=== PATIENT | female | born 1945 | race African-American/Black ===

== ENCOUNTER 2024-04-02 12:13 | Inpatient (IN) | payer OTHER ==
[~2024-04-02] VITALS: Ht 165.1 cm; Wt 69.9 kg
[2024-04-02 12:16] VITALS: O2SAT 94
[2024-04-02 13:27] LABS: HEMATOCRIT. 41.7 % (36.0-48.0); HEMOGLOBIN. 13.2 g/dL (12.0-16.0); MEAN CORPUSCULAR HEMOGLOBIN 31.7 pg (28.0-32.0); MEAN CORPUSCULAR HGB CONC 31.6 g/dL (31.0-37.0); MEAN CORPUSCULAR VOLUME 100.3 fL (81.0-99.0); MEAN PLATELET VOLUME 7.7 fl (7.4-10.4); PLATELET 275 x1000/uL (130-400); RED BLOOD CELL COUNT 4.16 mill/uL (4.2-5.4); RED CELL DISTRIBUTION WIDTH 14.6 % (11.6-14.6); WHITE BLOOD COUNT 13.2 x1000/uL (4.5-11.0)
[2024-04-02 13:30] LABS: DIFFERENTIAL COMMENT 1
[2024-04-02 13:39] LABS: CHLORIDE 104 mEq/L (98-107); POTASSIUM 3.6 mEq/L (3.5-5.1); SODIUM 141 mEq/L (136-145)
[2024-04-02 13:40] LABS: CALCIUM 9.6 mg/dL (8.7-10.4); CARBON DIOXIDE 19 mEq/L (21-32)
[2024-04-02 13:45] LABS: CREATININE 1.2 mg/dL (0.6-1.0); GLUCOSE 233 mg/dL (70-105); UREA NITROGEN BLOOD 18 mg/dL (9-23)
[2024-04-02 13:47] LABS: ALANINE AMINOTRANSFERASE 33 IU/L (10-49); ALBUMIN 4.2 g/dL (3.2-4.8); ASPARTATE AMINOTRANSFERASE 57 IU/L (<34); BILIRUBIN DIRECT 0.4 mg/dL (<=3.0); BILIRUBIN TOTAL 1.2 mg/dL (0.1-1.0); PROTEIN TOTAL 7.2 g/dL (6.0-8.3)
[2024-04-02 14:05] LABS: LACTIC ACID 8.7 mmol/L (0.4-2.0)
[2024-04-02 14:06] LABS: ETHANOL BLOOD < 10 mg/dL (<10); TROPONIN I HIGH SENSITIVITY 858 ng/L (3.0-34)
[2024-04-02 14:38] LABS: PLATELET ESTIMATE NORMAL
[2024-04-02] MEDS: SODIUM CHLORIDE 0.9% 1,000 ML IV ONE (15:00)
[2024-04-02] MEDS ORDERED: GUAIFENESIN 200MG/10ML SUGAR FREE UDC PO PRN (16:45)
[2024-04-02] MEDS ORDERED: IPRATROPIUM/ALBUTEROL 0.5-3(2.5)MG/3ML NEB HHN PRN (16:45)
[2024-04-02] MEDS ORDERED: ONDANSETRON HCL 4MG/2ML INJ IV PRN (16:45)
[2024-04-02] MEDS ORDERED: ACETAMINOPHEN 325MG TABLET PO PRN ×2 (16:45)
[2024-04-02] MEDS ORDERED: DOCUSATE SODIUM 100MG CAPSULE PO PRN (16:45)
[2024-04-02] MEDS ORDERED: MAGNESIUM/ALUMINUM HYDROXIDE/SIMETHICONE 30ML UDC PO PRN (16:45)
[2024-04-02] MEDS ORDERED: PIPERACILLIN/TAZOBACTAM 3.375 G in DEXTROSE 5% WATER 50 ML IV SCH (16:45)
[2024-04-02] MEDS: VANCOMYCIN 1.5GM/250ML 250 ML IV NR (17:00)
[2024-04-02 17:34] LABS: CLARITY URINE CLOUDY (CLEAR); COLOR URINE YELLOW (YELLOW); GLUCOSE URINE NEGATIVE (NEGATIVE); KETONES URINE TRACE (NEGATIVE); LEUKOCYTE ESTERASE URINE TRACE (NEGATIVE); NITRITE URINE NEGATIVE (NEGATIVE); OCCULT BLOOD URINE TRACE (NEGATIVE); PH URINE 5.5 (4.5-8.0); PROTEIN URINE 2+ (NEGATIVE); SPECIFIC GRAVITY URINE 1.016 (1.005-1.030)
[2024-04-02] MEDS: SODIUM CHLORIDE 0.9% 1,000 ML IV SCH (17:36)
[2024-04-02 17:53] LABS: *AMPHETAMINES SCREEN URINE NEGATIVE (NEGATIVE); *BARBITURATES SCREEN URINE NEGATIVE (NEGATIVE); *BENZODIAZEPINES SCREEN URINE NEGATIVE (NEGATIVE); *COCAINE SCREEN URINE NEGATIVE (NEGATIVE); METHADONE URINE SCREEN NEGATIVE (NEGATIVE); OPIATES URINE SCREEN NEGATIVE (NEGATIVE)
[2024-04-02 17:54] LABS: CANNABINOID URINE SCREEN NEGATIVE (NEGATIVE); ECSTASY MDMA SCREEN URINE NEGATIVE (NEGATIVE); PHENCYCLIDINE URINE SCREEN NEGATIVE (NEGATIVE)
[2024-04-02] MEDS ORDERED: PIPERACILLIN/TAZO 3.375G/100ML 100 ML IV SCH ×2 (18:00→22:00)
[2024-04-02] MEDS: PIPERACILLIN/TAZO 3.375G/100ML 100 ML IV SCH (18:16)
[2024-04-02 18:31] LABS: BACTERIA URINE 3+; SQUAMOUS EPITHELIAL CELL URINE 1+ /lpf (RARE/1+)
[2024-04-02 20:00] VITALS: BP 141/68; PULSE 86; RESP 18; TEMP 36.3918; O2SAT 94
[2024-04-02 21:00] VITALS: BP 141/68; PULSE 86; RESP 18; TEMP 36.418
[2024-04-02 21:59] LABS: AMMONIA 25 uMol/L (<32)
[2024-04-02 22:10] LABS: TROPONIN I HIGH SENSITIVITY 884 ng/L (3.0-34)
[2024-04-03 00:37] LABS: CREATINE KINASE 1392 IU/L (34-145)
[2024-04-03 01:04] LABS: TROPONIN I HIGH SENSITIVITY 751 ng/L (3.0-34)
[2024-04-03 07:09] LABS: POTASSIUM 3.7 mEq/L (3.5-5.1)
[2024-04-03 07:10] LABS: CALCIUM 8.7 mg/dL (8.7-10.4)
[2024-04-03 07:15] LABS: CREATININE 1.4 mg/dL (0.6-1.0); THYROID STIMULATING HORMONE 1.16 uIU/mL (0.55-4.78)
[2024-04-03 07:16] LABS: ALBUMIN 3.4 g/dL (3.2-4.8)
[2024-04-03] MEDS: DEXT 5%/0.9% NACL 1,000 ML IV SCH (09:06)
[2024-04-03] MEDS: ENOXAPARIN 40MG/0.4ML SYR SUBCUT SCH (09:08)
[2024-04-03 13:21] LABS: BASOPHILS % 0.3 % (0.0-2.0); EOSINOPHILS % 0.6 % (0.0-5.0); HEMATOCRIT. 33.2 % (36.0-48.0); HEMOGLOBIN. 11.2 g/dL (12.0-16.0); LYMPHOCYTES % 23.9 % (20.0-50.0); MEAN CORPUSCULAR HEMOGLOBIN 32.1 pg (28.0-32.0); MEAN CORPUSCULAR HGB CONC 33.6 g/dL (31.0-37.0); MEAN CORPUSCULAR VOLUME 95.5 fL (81.0-99.0); MEAN PLATELET VOLUME 7.7 fl (7.4-10.4); MONOCYTES % 8.2 % (2.0-8.0); PLATELET 255 x1000/uL (130-400); RED BLOOD CELL COUNT 3.48 mill/uL (4.2-5.4); RED CELL DISTRIBUTION WIDTH 13.6 % (11.6-14.6); WHITE BLOOD COUNT 10.3 x1000/uL (4.5-11.0)
[2024-04-03 14:15] VITALS: BP 136/76; PULSE 84; RESP 18; TEMP 37.00296; O2SAT 97
[2024-04-03 16:16] VITALS: RESP 18; TEMP 36.3918; O2SAT 96
[2024-04-03] MEDS: CLONIDINE 0.1MG TABLET PO PRN (18:03)
[2024-04-03] MEDS: VANCOMYCIN 750MG PMX (XELLIA) 150 ML IV SCH (18:53)
[2024-04-03 20:00] VITALS: BP 129/61; PULSE 70; RESP 16; TEMP 36.78072; O2SAT 97
[2024-04-03 22:30] VITALS: BP 131/74; PULSE 82; RESP 16; TEMP 36.61404; O2SAT 97
[2024-04-03] MEDS ORDERED: PIPE3.3773 IV (22:45)
== END 2024-04-03 23:41 | disposition short-term general hospital (02) | DRG 871 ==
LOC: ER 12:13 → EDBEDREQ 12:59 → 5WST 18:33
PROVIDERS: ADMIT Internal Medicine; ATTEND Internal Medicine
DX: A41.9 Sepsis, unspecified organism (principal); G93.41 Metabolic encephalopathy; R65.21 Severe sepsis with septic shock; I21.A1 Myocardial infarction type 2; E87.20 Acidosis, unspecified; N17.9 Acute kidney failure, unspecified; R17 Unspecified jaundice; M62.82 Rhabdomyolysis; N39.0 Urinary tract infection, site not specified; E11.22 Type 2 diabetes mellitus with diabetic chronic kidney disease; F03.90 Unspecified dementia, unspecified severity, without behavioral disturbance, psychotic disturbance, mood disturbance, and anxiety; I12.9 Hypertensive chronic kidney disease with stage 1 through stage 4 chronic kidney disease, or unspecified chronic kidney disease; N18.9 Chronic kidney disease, unspecified
CPT/HCPCS: 36415; 71045; 74176; 80048; 80076; 80305; 80320; 81003; 82040; 82140; 82550; 83605; 83880; 84145; 84443; 84484; 85025; 93005; 99291; A4606; J1650; J2543; J3370; J7042; G0480

== ENCOUNTER 2024-05-29 16:38 | Emergency (ER) | payer MEDICARE, OTHER ==
[~2024-05-29] VITALS: Ht 165.1 cm; Wt 68.0 kg
[~2024-05-29 16:38] MED LIST: PIPE3.3773 IV
[2024-05-29 16:40] VITALS: TEMP 37.3; O2SAT 99
[2024-05-29] MEDS ORDERED: VANCOMYCIN 1G PREMIX 200 ML IV ONE (17:15)
[2024-05-29] MEDS: PIPERACILLIN/TAZO 3.375G/50ML 50 ML IV ONE (17:15)
[2024-05-29] MEDS: SODIUM CHLORIDE 0.9% (SEPSIS BOLUS) IV ONE (17:41)
[2024-05-29 19:28] LABS: BASOPHILS % 0.1 % (0.0-2.0); HEMATOCRIT. 35.5 % (36.0-48.0); HEMOGLOBIN. 11.3 g/dL (12.0-16.0); LYMPHOCYTES % 8.3 % (20.0-50.0); MEAN CORPUSCULAR HEMOGLOBIN 31.1 pg (28.0-32.0); MEAN CORPUSCULAR HGB CONC 31.7 g/dL (31.0-37.0); MEAN PLATELET VOLUME 8.1 fl (7.4-10.4); MONOCYTES % 5.3 % (2.0-8.0); NEUTROPHILS % 86.3 % (40.0-76.0); PLATELET 333 x1000/uL (130-400); RED BLOOD CELL COUNT 3.62 mill/uL (4.2-5.4); RED CELL DISTRIBUTION WIDTH 15.4 % (11.6-14.6); WHITE BLOOD COUNT 14.5 x1000/uL (4.5-11.0)
[2024-05-29 19:40] LABS: CALCIUM 8.9 mg/dL (8.7-10.4); CARBON DIOXIDE 26 mEq/L (21-32); CHLORIDE 119 mEq/L (98-107)
[2024-05-29 19:45] LABS: CREATININE 1.5 mg/dL (0.6-1.0); GLUCOSE 280 mg/dL (70-105); UREA NITROGEN BLOOD 53 mg/dL (9-23)
[2024-05-29 19:46] LABS: AMMONIA < 17 uMol/L (<32); INR 1.1; PROTHROMBIN TIME 11.9 sec (9.6-11.0); TROPONIN I HIGH SENSITIVITY 18 ng/L (3.0-34)
[2024-05-29 19:47] LABS: ALANINE AMINOTRANSFERASE 27 IU/L (10-49); ASPARTATE AMINOTRANSFERASE 40 IU/L (<34); BILIRUBIN DIRECT 0.2 mg/dL (<=3.0); BILIRUBIN TOTAL 0.5 mg/dL (0.1-1.0); CREATINE KINASE 1213 IU/L (34-145); PROTEIN TOTAL 6.3 g/dL (6.0-8.3)
[2024-05-29 19:51] LABS: ETHANOL BLOOD < 10 mg/dL (<10)
[2024-05-29 19:54] LABS: SODIUM 156 mEq/L (136-145)
[2024-05-29] MEDS: VANCOMYCIN 1G PREMIX 200 ML IV NR (21:17)
[2024-05-29 21:52] LABS: CLARITY URINE CLOUDY (CLEAR); COLOR URINE YELLOW (YELLOW); GLUCOSE URINE NEGATIVE (NEGATIVE); KETONES URINE NEGATIVE (NEGATIVE); LEUKOCYTE ESTERASE URINE 2+ (NEGATIVE); NITRITE URINE POSITIVE (NEGATIVE); OCCULT BLOOD URINE 2+ (NEGATIVE); PH URINE 5.5 (4.5-8.0); PROTEIN URINE 1+ (NEGATIVE); SPECIFIC GRAVITY URINE 1.048 (1.005-1.030)
[2024-05-29 22:14] LABS: *AMPHETAMINES SCREEN URINE NEGATIVE (NEGATIVE)
[2024-05-29 22:15] LABS: *BARBITURATES SCREEN URINE NEGATIVE (NEGATIVE); *BENZODIAZEPINES SCREEN URINE NEGATIVE (NEGATIVE); *COCAINE SCREEN URINE NEGATIVE (NEGATIVE); CANNABINOID URINE SCREEN NEGATIVE (NEGATIVE); ECSTASY MDMA SCREEN URINE NEGATIVE (NEGATIVE); METHADONE URINE SCREEN NEGATIVE (NEGATIVE); OPIATES URINE SCREEN NEGATIVE (NEGATIVE); PHENCYCLIDINE URINE SCREEN NEGATIVE (NEGATIVE)
[2024-05-29 22:31] VITALS: BP 102/58; PULSE 100; RESP 15; O2SAT 97
[2024-05-29 22:33] LABS: BACTERIA URINE 1+; SQUAMOUS EPITHELIAL CELL URINE FEW /lpf (RARE/1+)
[2024-05-29] MEDS ORDERED: IOHEXOL-300 100 ML BOTTLE ONE (23:27)
== END 2024-05-29 23:29 | disposition short-term general hospital (02) ==
LOC: ER 16:55 → EDBEDREQ 17:08 → EDBEDREQTM 20:44 → EDBEDREQ 20:44 → ER 23:29
DX: A41.9 Sepsis, unspecified organism (principal); R65.20 Severe sepsis without septic shock; E86.0 Dehydration; G93.41 Metabolic encephalopathy; R62.7 Adult failure to thrive; J18.9 Pneumonia, unspecified organism; N39.0 Urinary tract infection, site not specified; I10 Essential (primary) hypertension; F03.90 Unspecified dementia, unspecified severity, without behavioral disturbance, psychotic disturbance, mood disturbance, and anxiety; Z79.899 Other long term (current) drug therapy
CPT/HCPCS: 80076; 80305; 80048; 81003; 80320; 82140; 82550; 82962; 83880; 83605; 83690; 85025; 85610; 86850; 86900; 86901; 87040; 87086; 87186; 84484; 87077; 36415; 84145; 71045; 70450; 71260; 93005; 96367; 96365; 96366; 99291; Q9967; J2543; J3370; J7030; G0480

== ENCOUNTER 2024-09-05 17:44 | Emergency (ER) | payer OTHER ==
[~2024-09-05] VITALS: Ht 157.5 cm; Wt 45.0 kg
[~2024-09-05 17:44] MED LIST changes: +CALCIUM CHLORIDE 1GM/10ML SYR IV ONE; +DEXTROSE 50% WATER 50ML SYRINGE IV ONE; +EPINEPHRINE 0.1MG/ML (1:10,000) 10ML SYR ONE; +SODIUM BICARBONATE 8.4% 50MEQ/50ML SYR IV ONE
[2024-09-05 17:47] VITALS: BP 152/116; PULSE 50; RESP 24; TEMP 36.8; O2SAT 92
[2024-09-05] MEDS: DEXTROSE 50% WATER 50ML SYRINGE IV ONE ×3 (18:10→18:17)
[2024-09-06] MEDS: DEXTROSE 50% WATER 50ML SYRINGE IV ONE ×4 (14:19)
== END 2024-09-05 22:00 ==
LOC: ER 17:44
DX: I46.9 Cardiac arrest, cause unspecified (principal); F03.90 Unspecified dementia, unspecified severity, without behavioral disturbance, psychotic disturbance, mood disturbance, and anxiety; R09.02 Hypoxemia; Z79.899 Other long term (current) drug therapy
CPT/HCPCS: 99291; 92950; 31500; 96374; 82962; 93005; J3490 ×3; 94070